=== PATIENT | male | born 1995 ===

== ENCOUNTER 2016-11-05 21:41 | Emergency (ER) | payer MEDICAID ==
[2016-11-05 22:03] VITALS: BMI 26.6
[2016-11-05] MEDS ORDERED: cefTRIAXone 1 gm 1 GM/100 ML BAG IVPB STA (22:20)
[2016-11-05] MEDS ORDERED: Albuterol-Ipratrop 3 mg / 0.5 (3 ml) UD IH STA (22:20)
[2016-11-05] MEDS ORDERED: Sodium Chloride 0.9% 1,000 ML IV STA (22:20)
--- NOTE | 2016-11-05 22:20 | ED PDOC ---
Arrival/HPI <Artem Sylvester - Last Filed: 11/06/16 00:01> - General Historian: Patient <Jacobo Arrington - Last Filed: 11/07/16 14:48> - General Chief Complaint: ENT Problem Time Seen by Provider: 11/05/16 22:14 - History of Present Illness Narrative History of Present Illness (Text): 11/05/16 22:15 21 y/o male, pmh including asthma, nkda, c/o coughing and throat pain x 2 days. Aching throat pain, aggravated by swallowing, associated with the productive coughing and asthma, admits fever, no chills, no neck stiffness, no recent traveling, no dizziness, no other medical or psychological complaints. (Jacobo Arrington) Past Medical History - Provider Review Nursing Documentation Reviewed: Yes - Infectious Disease Hx of Infectious Diseases: None - Pulmonary Hx Asthma: Yes - Neurological Hx Seizures: Yes - Musculoskeletal/Rheumatological Hx Back Pain: Yes Hx Herniated Disk: Yes - Psychiatric Hx Substance Use: No - Anesthesia Hx Anesthesia: No <Jacobo Arrington - Last Filed: 11/07/16 14:48> Family/Social History - Physician Review Nursing Documentation Reviewed: Yes Family/Social History: Unknown Family HX Smoking Status: Light Smoker < 10 Cigarettes Daily Hx Alcohol Use: Yes Frequency of alcohol use: Socially Hx Substance Use: No <Jacobo Arrington - Last Filed: 11/07/16 14:48> Allergies/Home Meds <Artem Sylvester - Last Filed: 11/06/16 00:01> <Jacobo Arrington - Last Filed: 11/07/16 14:48> Allergies/Adverse Reactions: Allergies No Known Allergies Allergy (Unverified 01/30/13 17:03) Home Medications: Home Meds Medication Instructions Recorded Confirmed Dulera 01/30/13 01/30/13 Singulair 01/30/13 01/30/13 Albuterol HFA [Ventolin HFA 90 1 puff IH QID 11/05/16 11/05/16 mcg/actuation (8 g)] Lamotrigine [Lamictal] 1 tab PO DAILY 11/05/16 11/05/16 Mometasone/Formoterol [Dulera 100 1 puff IH DAILY 07/29/17 07/29/17 Mcg/5 Mcg Inhaler] QUEtiapine [SEROquel] 1 tab PO HS 11/05/16 11/05/16 Review of Systems - Review of Systems Constitutional: Fatigue, Fevers Eyes: absent: Vision Changes ENT: Sore Throat. absent: Hearing Changes Respiratory: Cough, Sputum, Wheezing. absent: SOB Cardiovascular: absent: Chest Pain Gastrointestinal: absent: Abdominal Pain, Nausea, Vomiting Musculoskeletal: Myalgias. absent: Arthralgias, Back Pain, Neck Pain, Joint Swelling Skin: absent: Rash, Pruritis, Skin Lesions <Jacobo Arrington Q - Last Filed: 11/07/16 14:48> Physical Exam Vital Signs Reviewed: Yes Temperature: Febrile Blood Pressure: Normal Pulse: Tachycardic Respiratory Rate: Normal Appearance: Positive for: Well-Appearing, Non-Toxic, Comfortable Pain Distress: Severe Mental Status: Positive for: Alert and Oriented X 3 - Systems Exam Head: Present: Atraumatic, Normocephalic Pupils: Present: PERRL Extroacular Muscles: Present: EOMI Conjunctiva: Present: Normal Ears: Present: NORMAL TM, Normal Canal. No: Erythema Mouth: Present: Moist Mucous Membranes Pharnyx: Present: ERYTHEMA, EXUDATE, TONSILS ENLARGED. No: Peritonsilar Swelling, Uvular Deviation, Muffled/Hoarse Voice, Strider, Soft Palate/Uvular Edema Nose (Internal): Present: Normal Inspection, No Active Bleeding, Moist Neck: Present: Normal Range of Motion, Lymphadenopathy (lt. anterior cervical), Trachea Midline. No: Meningeal Signs, MIDLINE TENDERNESS Respiratory/Chest: Present: Clear to Auscultation, Good Air Exchange, Wheezes, Decreased Breath Sounds, Rhonchi, Other (bilateral decrease aeration with wheezing and rhonchi). No: Respiratory Distress, Accessory Muscle Use, Rales, Retracting, Tachypneic, Tender to Palpation Cardiovascular: Present: Regular Rate and Rhythm, Normal S1, S2. No: Murmurs Abdomen: Present: Normal Bowel Sounds. No: Tenderness, Distention, Peritoneal Signs Back: Present: Normal Inspection Upper Extremity: Present: Normal Inspection. No: Cyanosis, Edema Lower Extremity: Present: Normal Inspection. No: Edema Neurological: Present: GCS=15, Speech Normal, Motor Func Grossly Intact, Gait Normal, Memory Normal Skin: Present: Warm, Dry, Normal Color. No: Rashes Lymphatic: Present: Cervical Adenopathy (lt. anterior cervical) Psychiatric: Present: Alert, Oriented x 3, Normal Insight, Normal Concentration <Jacobo Arrington - Last Filed: 11/07/16 14:48> Vital Signs Temp Pulse Resp BP Pulse Ox 11/06/16 01:37 95 H 18 131/83 99 11/06/16 00:18 100.1 F H 100 H 16 123/71 99 11/05/16 22:08 102.2 F H 119 H 18 119/79 97 Medical Decision Making <Artem Sylvester - Last Filed: 11/06/16 00:01> - Lab Interpretations I have reviewed the lab results: Yes Interpretation: Abnormal lab values (wbc 12.7) - RAD Interpretation Tuber Operator: Radiologist <Jacobo Arrington - Last Filed: 11/07/16 14:48> ED Course and Treatment: 11/05/16 22:28 -labs -chest x-ray -IVF/decadron/duonebx2/tylenol/toradol -Observe and reassess 11/06/16 01:10 -Labs are non-significant except wbc 12.7 -Chest x-ray show no active disease -Pt. feels much better, fever and HR decreased significantly, eating and drinking well, lung is clear to auscultate with no wheezing, no rales. -Discharge home with augmentin, motrin, prednisone, albuterol MDI, stay hydrated , bed rest, follow up with your own pmd and ENT within 2 days, return to the ER for any new or worsening signs or symptoms. (Jacobo Arrington) - Lab Interpretations Lab Results: 11/05/16 23:00 11/05/16 23:00 Lab Results 11/05/16 23:00: Sodium 136, Potassium 4.1, Chloride 102, Carbon Dioxide 24, Anion Gap 14, BUN 11, Creatinine 0.8, Est GFR ( Amer) > 60, Est GFR (Non- Af Amer) > 60, Random Glucose 91, Calcium 9.4, Total Bilirubin 0.6, AST 52, ALT 72 H, Alkaline Phosphatase 133, Total Protein 8.2, Albumin 4.6, Globulin 3.6, Albumin/Globulin Ratio 1.3 11/05/16 23:00: WBC 12.7 H, RBC 5.12, Hgb 15.9, Hct 44.1, MCV 86.1, MCH 31.1, MCHC 36.1, RDW 12.6, Plt Count 151, MPV 10.5, Gran % 79.1 H, Lymph % (Auto) 9.5 L, [place] % (Auto) 11.2 H, Eos % (Auto) 0.1 L, Baso % (Auto) 0.1, Gran # 10.07 H, Lymph # 1.2, [place] # 1.4 H, Eos # 0.0, Baso # 0.01 - RAD Interpretation Radiology Orders: 11/05/16 22:20 CHEST PORTABLE [RAD] Stat 11/05/16 22:20 CHEST PORTABLE [RAD] Stat no acute cardiopulmonary disease (Jacobo Arrington) - Medication Orders Current Medication Orders: Discontinued Medications Acetaminophen (Tylenol 650mg/20.3ml Solution Ud) 650 mg PO STAT STA Stop: 11/05/16 22:24 Last Admin: 11/05/16 23:09 Dose: 650 mg Albuterol/Ipratropium (Duoneb 3 Mg/0.5 Mg (3 Ml) Ud) 6 ml IH STAT STA Stop: 11/05/16 22:21 Last Admin: 11/05/16 23:08 Dose: 6 ml Dexamethasone (Decadron Inj) 10 mg IVP STAT STA Stop: 11/05/16 22:21 Last Admin: 11/05/16 23:09 Dose: 10 mg Ceftriaxone Sodium (Rocephin 1 Gram Ivpb) 1 gm in 100 mls @ 200 mls/hr IVPB STAT STA PRN Reason: Protocol Stop: 11/05/16 22:49 Last Admin: 11/05/16 23:10 Dose: 200 mls/hr Sodium Chloride (Sodium Chloride 0.9%) 1,000 mls @ 999 mls/hr IV .Q1H1M STA Stop: 11/05/16 23:20 Last Admin: 11/05/16 23:00 Dose: 999 mls/hr Ketorolac Tromethamine (Toradol) 30 mg IVP STAT STA Stop: 11/05/16 22:21 Last Admin: 11/05/16 23:09 Dose: 30 mg - PA / HOTEL OR MOTEL RECEPTIONIST / Resident Statement MD/DO has reviewed & agrees with the documentation as recorded. <Artem Sylvester - Last Filed: 11/06/16 00:01> - PA / HOTEL OR MOTEL RECEPTIONIST / Resident Statement / has reviewed & agrees with the documentation as recorded. <Jacobo Arrington Yisel - Last Filed: 11/07/16 14:48> Disposition/Present on Arrival <Artem Sylvester - Last Filed: 11/06/16 00:01> - Present on Arrival Any Indicators Present on Arrival: No History of DVT/PE: No History of Uncontrolled Diabetes: No Urinary Catheter: No History of Decub. Ulcer: No History Surgical Site Infection Following: None - Disposition Have Diagnosis and Disposition been Completed?: Yes Disposition Time: 22:28 Patient Plan: Discharge <Jacobo Arrington - Last Filed: 11/07/16 14:48> - Disposition Diagnosis: Asthma attack, Tonsillitis with exudate Disposition: HOME/ ROUTINE Condition: IMPROVED Additional Instructions: -Discharge home with augmentin, motrin, prednisone, albuterol MDI, stay hydrated , bed rest, follow up with your own pmd and ENT within 2 days, return to the ER for any new or worsening signs or symptoms. Prescriptions: Albuterol HFA [Ventolin HFA 90 mcg/actuation (8 g)] 2 puff IH [id number] PRN #1 puff PRN Reason: Other Amoxicillin/Clavulanate [Augmentin 875 MG-125 MG] 1 tab PO BID #20 tab Ibuprofen [Motrin] 600 mg PO QID PRN #30 tab PRN Reason: Other predniSONE [Prednisone] 2 tab PO DAILY #8 tab Referrals: Filemon Nicolas MD [Primary Care Provider] - Follow up with primary Lee Hays DO [Staff Provider] - Follow up with primary Forms: [employer] (Danish)
[2016-11-05] MEDS ORDERED: Acetaminophen 650mg/20.3ml solution UD PO STA (22:23)
[2016-11-05 23:20] LABS: ALB/GLOB RATIO 1.3 (1.1-1.8); ALBUMIN 4.6 g/dL (3.0-4.8); ALT/SGPT 72 U/L (7-56); AST/SGOT 52 U/L (15-59); BLOOD UREA NITROGEN 11 mg/dL (7-21); CALCIUM 9.4 mg/dL (8.4-10.5); GFR AFRICAN-AMERICAN > 60; GFR NON-AFRICAN AMERICAN > 60
[2016-11-05 23:22] LABS: BASO # 0.01 K/mm3 (0.0-2.0); BASO % 0.1 % (0.0-3.0); EOS % 0.1 % (1.5-5.0); GRAN # 10.07 (1.4-6.5); GRAN % 79.1 % (50.0-68.0); HEMOGLOBIN 15.9 gm/dL (14.0-18.0); LYMPH # 1.2 (1.2-3.4); LYMPH % 9.5 % (22.0-35.0); MEAN CELL VOLUME 86.1 fL (80.0-105.0); MEAN CORPUSCULAR HEMOGLOBIN 31.1 pg (25.0-35.0); MEAN CORPUSCULAR HGB CONC 36.1 g/dl (31.0-37.0); MEAN PLATELET VOLUME 10.5 fl (7.0-11.0); MONO # 1.4 (0.1-0.6); MONO % 11.2 % (1.0-6.0); PLATELET COUNT 151 10^3/uL (120.0-450.0); RBC 5.12 10^6/uL (3.5-6.1); RED CELL DISTRIBUTION WIDTH 12.6 % (11.5-14.5); WHITE BLOOD COUNT 12.7 10^3/ul (4.5-11.0)
[2016-11-06 00:19] VITALS: TEMP 100.1; O2SAT 99
[2016-11-06 03:09] VITALS: BP 131/83; PULSE 95; RESP 18
--- NOTE | 2016-11-06 13:56 | RAD ---
HISTORY: cough and wheezing COMPARISON: No prior. FINDINGS: LUNGS: No active pulmonary disease. PLEURA: No significant pleural effusion identified, no pneumothorax apparent. CARDIOVASCULAR: Normal. OSSEOUS STRUCTURES: No significant abnormalities. VISUALIZED UPPER ABDOMEN: Normal. OTHER FINDINGS: None. IMPRESSION: No acute cardiopulmonary disease. Caps
== END 2016-11-06 01:37 | disposition home or self-care (01) ==
LOC: MERGE 21:41 → ED 21:41
DX: J45.909 Unspecified asthma, uncomplicated (principal); J03.90 Acute tonsillitis, unspecified; Z72.0 Tobacco use
CPT/HCPCS: 71010; 80053; 85025; 96361; 96365; 96375; 99284; J0696; J1100; J1885; J7040

== ENCOUNTER 2016-11-08 21:40 | Emergency (ER) | payer MEDICAID ==
[2016-11-08 21:40] VITALS: BMI 26.6
[2016-11-08] MEDS ORDERED: Albuterol-Ipratrop 3 mg / 0.5 (3 ml) UD IH STA (22:26)
[2016-11-08] MEDS ORDERED: Sodium Chloride 0.9% 1,000 ML IV SCH (22:30)
--- NOTE | 2016-11-08 22:34 | ED PDOC ---
Arrival/HPI <KwamenathanShabbir - Last Filed: 11/09/16 01:15> <Colt Sanchez - Last Filed: 11/09/16 01:36> - General Chief Complaint: ENT Problem Time Seen by Provider: 11/08/16 21:59 - History of Present Illness Narrative History of Present Illness (Text): 11/08/16 22:27 21yo M with PMHx including Asthma, Seizure disorder here for evaluation of sore throat. Patient states that the symptoms started on Monday, 4 days ago. He c/o fevers, chills, cough (non-productive). He feels nauseous after coughing. He came into the ED 3 days ago, was started on Augmentin, Albuterol, prednisone which he has been taking as prescribed, however, his symptoms have been getting worse. He states that his oral intake has been decreasing due to pain. He c/o increased drooling as well. He has right sided chest pain which is worse with coughing. Denies any sick contacts. PMHx: Asthma, Seizure disorder PSHx: Denies Social Hx: Current 4 cigs a day smoker. Denies etoh, denies illicit drugs NKDA (Colt Sanchez) Past Medical History - Provider Review Nursing Documentation Reviewed: Yes - Infectious Disease Hx of Infectious Diseases: None - Pulmonary Hx Asthma: Yes - Neurological Hx Seizures: Yes - Musculoskeletal/Rheumatological Hx Back Pain: Yes Hx Herniated Disk: Yes - Psychiatric Hx Substance Use: No - Anesthesia Hx Anesthesia: No <Colt Sanchez - Last Filed: 11/09/16 01:36> Family/Social History - Physician Review Nursing Documentation Reviewed: Yes Family/Social History: No Known Family HX Smoking Status: Light Smoker < 10 Cigarettes Daily Hx Alcohol Use: Yes Hx Substance Use: No <Colt Sanchez - Last Filed: 11/09/16 01:36> Allergies/Home Meds <Shabbir Vergara - Last Filed: 11/09/16 01:15> <Colt Sanchez - Last Filed: 11/09/16 01:36> Allergies/Adverse Reactions: Allergies No Known Allergies Allergy (Unverified 01/30/13 17:03) Home Medications: Home Meds Medication Instructions Recorded Confirmed Dulnelson 01/30/13 01/30/13 Singulair 01/30/13 01/30/13 Albuterol HFA [Ventolin HFA 90 1 puff IH QID 11/05/16 11/08/16 mcg/actuation (8 g)] Lamotrigine [Lamictal] 1 tab PO DAILY 11/05/16 11/08/16 Mometasone/Formoterol [Dulera 100 1 puff IH DAILY 11/05/16 11/08/16 Mcg/5 Mcg Inhaler] QUEtiapine [SEROquel] 1 tab PO HS 11/05/16 11/08/16 Review of Systems - Physician Review All systems were reviewed & negative as marked: Yes - Review of Systems Constitutional: Fevers ENT: Sore Throat Respiratory: SOB, Cough, Wheezing Cardiovascular: absent: Calf Pain Gastrointestinal: Nausea. absent: Abdominal Pain, Vomiting Genitourinary Male: absent: Dysuria, Frequency Musculoskeletal: absent: Back Pain Neurological: absent: Headache, Dizziness <Colt Sanchez - Last Filed: 11/09/16 01:36> Physical Exam Vital Signs Reviewed: Yes Temperature: Febrile Blood Pressure: Normal Pulse: Tachycardic Respiratory Rate: Normal Appearance: Positive for: Well-Appearing, Comfortable Mental Status: Positive for: Alert and Oriented X 3 - Systems Exam Head: Present: Atraumatic, Normocephalic Extroacular Muscles: Present: EOMI Conjunctiva: Present: Normal Mouth: Present: Moist Mucous Membranes Pharnyx: Present: ERYTHEMA, EXUDATE, TONSILS ENLARGED, Peritonsilar Swelling Neck: Present: Lymphadenopathy Respiratory/Chest: Present: Wheezes (occasional wheezes), Rhonchi. No: Accessory Muscle Use Cardiovascular: Present: Normal S1, S2, Tachycardic Abdomen: No: Tenderness, Distention, Peritoneal Signs, Rebound, Guarding Lower Extremity: Present: Normal Inspection. No: Edema, CALF TENDERNESS Neurological: Present: GCS=15, Speech Normal Skin: Present: Warm, Dry, Normal Color. No: Rashes Psychiatric: Present: Alert, Oriented x 3 <Colt Sanchez - Last Filed: 11/09/16 01:36> Vital Signs Temp Pulse Resp BP Pulse Ox 11/09/16 00:01 100.2 F H 100 H 17 128/75 98 11/08/16 21:41 101.8 F H 116 H 18 127/71 98 Medical Decision Making <Shabbir Vergara - Last Filed: 11/09/16 01:15> <Colt Sanchez - Last Filed: 11/09/16 01:36> ED Course and Treatment: In agreement with resident note which contains more details about the patient. Patient was seen and evaluated with resident. Came up with plan and treatment together. Patient is a 21 year old male who presents to the emergency department complaining of 4 day duration of sore throat associated with fever, chills and cough. CT neck shows probable tonsillitis. Patient is stable for discharge. Advised to follow up with PMD within few days and present to emergency department for new/worsening symptoms. (Shabbir Vergara) 11/08/16 22:43 21yo M with pharyngitis/tonsilitis - Labs: CBC/CMP/Heterophile Antibody - IVF - Solumedrol - Duonebs - Tylenol - CT Neck soft tissue - Reassess and dispo 11/09/16 00:57 CT - Probable Tonsilitis. (Colt Sanchez) - Lab Interpretations Lab Results: 11/08/16 22:40 11/08/16 22:40 Lab Results 11/08/16 23:58: Grp A Beta Strep Ag Negative 11/08/16 22:40: Sodium 140, Potassium 3.3 L, Chloride 98, Carbon Dioxide 31, Anion Gap 14, BUN 14, Creatinine 0.8, Est GFR ( Amer) > 60, Est GFR (Non- Af Amer) > 60, Random Glucose 118 H, Calcium 9.1, Total Bilirubin 0.3, AST 97 H , ALT 185 H, Alkaline Phosphatase 128, Total Protein 7.8, Albumin 4.4, Globulin 3.5, Albumin/Globulin Ratio 1.3 11/08/16 22:40: WBC 8.7 D, RBC 5.03, Hgb 15.5, Hct 43.4, MCV 86.3, MCH 30.8, MCHC 35.7, RDW 12.4, Plt Count 153, MPV 10.3, Gran % 66.6, Lymph % (Auto) 18.0 L , [place] % (Auto) 15.2 H, Eos % (Auto) 0.0 L, Baso % (Auto) 0.2, Gran # 5.77, Lymph # 1.6, [place] # 1.3 H, Eos # 0.0, Baso # 0.02 - RAD Interpretation Radiology Orders: 11/08/16 22:22 NECK SOFT TISSUE W/O CONTRAST [CT] Stat - Medication Orders Current Medication Orders: Sodium Chloride (Sodium Chloride 0.9%) 1,000 mls @ 100 mls/hr IV .Q10H ANT Last Admin: 11/08/16 22:53 Dose: 100 mls/hr Discontinued Medications Acetaminophen (Tylenol 650mg/20.3ml Solution Ud) 650 mg PO STAT STA Stop: 11/08/16 22:54 Last Admin: 11/08/16 23:10 Dose: 650 mg Albuterol/Ipratropium (Duoneb 3 Mg/0.5 Mg (3 Ml) Ud) 3 ml IH STAT STA Stop: 11/08/16 22:27 Last Admin: 11/08/16 22:51 Dose: 3 ml Methylprednisolone (Solu-Medrol) 60 mg IVP STAT STA Stop: 11/08/16 22:24 Last Admin: 11/08/16 22:51 Dose: 60 mg - PA / RELEASE OF INFORMATION CLERK / Resident Statement / has reviewed & agrees with the documentation as recorded. / has examined the patient and agrees with the treatment plan. <Shabbir Vergara - Last Filed: 11/09/16 01:15> <Colt Sanchez - Last Filed: 11/09/16 01:36> - Scribe Statement Jorge Chase Provider Scribe Attestation: All medical record entries made by the Scribe were at my direction and personally dictated by me. I have reviewed the chart and agree that the record accurately reflects my personal performance of the history, physical exam, medical decision making, and the department course for this patient. I have also personally directed, reviewed, and agree with the discharge instructions and disposition. (Shabbir Vergara) Disposition/Present on Arrival <Shabbir Vergara - Last Filed: 11/09/16 01:15> - Present on Arrival Any Indicators Present on Arrival: No History of DVT/PE: No History of Uncontrolled Diabetes: No Urinary Catheter: No History Surgical Site Infection Following: None - Disposition Have Diagnosis and Disposition been Completed?: Yes Disposition Time: :29 Patient Plan: Discharge <Colt Sanchez - Last Filed: 11/09/16 01:36> - Disposition Diagnosis: Acute tonsillitis, Pharyngitis Disposition: HOME/ ROUTINE Patient Problems: Current Active Problems Problem Status Onset Acute tonsillitis Acute Pharyngitis Acute Condition: GOOD Discharge Instructions (ExitCare): Pharyngitis (ED), Mononucleosis (ED) Additional Instructions: 1. Follow up with a primary care physician in 3-5 days 2. Follow up with ENT. Call for appointment 3. Rest and ensure adequate oral hydration 4. Complete current course of Antibiotics 5. You may not play any contact sports for at least the next 3 months, or until you are cleared by your primary care physician 6. Return to the ER with any new/or worsening symptoms Referrals: Filemon Nicolas MD [Primary Care Provider] - Follow up with primary Lee Hays DO [Staff Provider] - Follow up with primary
[2016-11-08] MEDS ORDERED: Acetaminophen 650mg/20.3ml solution UD PO STA (22:53)
[2016-11-08 23:13] LABS: BASO # 0.02 K/mm3 (0.0-2.0); BASO % 0.2 % (0.0-3.0); GRAN # 5.77 (1.4-6.5); GRAN % 66.6 % (50.0-68.0); HEMOGLOBIN 15.5 gm/dL (14.0-18.0); LYMPH # 1.6 (1.2-3.4); MEAN CELL VOLUME 86.3 fL (80.0-105.0); MEAN CORPUSCULAR HEMOGLOBIN 30.8 pg (25.0-35.0); MEAN CORPUSCULAR HGB CONC 35.7 g/dl (31.0-37.0); MEAN PLATELET VOLUME 10.3 fl (7.0-11.0); MONO # 1.3 (0.1-0.6); MONO % 15.2 % (1.0-6.0); PLATELET COUNT 153 10^3/uL (120.0-450.0); RBC 5.03 10^6/uL (3.5-6.1); RED CELL DISTRIBUTION WIDTH 12.4 % (11.5-14.5); WHITE BLOOD COUNT 8.7 10^3/ul (4.5-11.0)
[2016-11-08 23:17] LABS: ALB/GLOB RATIO 1.3 (1.1-1.8); ALBUMIN 4.4 g/dL (3.0-4.8); ALT/SGPT 185 U/L (7-56); AST/SGOT 97 U/L (15-59); BLOOD UREA NITROGEN 14 mg/dL (7-21); CALCIUM 9.1 mg/dL (8.4-10.5); GFR AFRICAN-AMERICAN > 60; GFR NON-AFRICAN AMERICAN > 60
--- NOTE | 2016-11-09 00:23 | CT ---
EXAM: CT Neck Without Intravenous Contrast CLINICAL HISTORY: 21 years old, male; Pain; Throat pain TECHNIQUE: Axial computed tomography images of the neck without intravenous contrast. This CT exam was performed using one or more of the following dose reduction techniques: automated exposure control, adjustment of the mA and/or kV according to patient size, and/or use of iterative reconstruction technique. Coronal and sagittal reformatted images were created and reviewed. COMPARISON: No relevant prior studies available. FINDINGS: Limitations: Lack of intravenous contrast, limiting evaluation for abscess. Nasopharynx: Enlarged adenoids. Oropharynx: Mildly enlarged palatine tonsils. Hypopharynx: Unremarkable. Larynx: Unremarkable. Normal epiglottis. Trachea: Unremarkable. Retropharyngeal space: Unremarkable. Submandibular/parotid glands: Unremarkable. Glands are normal in size. Thyroid: Unremarkable. No enlarged or calcified nodules. Bones/joints: No acute fracture. Soft tissues: Unremarkable. Vasculature: No acute findings. Lymph nodes: [place] cervical lymph nodes, likely reactive. Lung apices: Unremarkable as visualized. IMPRESSION: 1. Probable tonsillitis. 2. Incidental/non-acute findings are described above.
[2016-11-09 01:44] VITALS: BP 126/70; PULSE 95; RESP 18; O2SAT 99
[2016-11-09 01:49] VITALS: TEMP 100
== END 2016-11-09 01:48 | disposition home or self-care (01) ==
LOC: ED 21:40
DX: J03.90 Acute tonsillitis, unspecified (principal); Z72.0 Tobacco use
CPT/HCPCS: 70490; 80053; 85025; 86308; 87070; 87430; 96374; 99284; J2930; J7040